=== PATIENT | male | born 1935 | race Caucasian/White ===

== ENCOUNTER → 2016-11-16 | Outpatient (CLI) | payer MEDICARE, BC ==
[~2016-11-16] MED LIST: ASA CHILDREN'S81 MG PO; CYTOTEC DPS200 MCG VG; FLOMAX DPS0.4 MG PO; FOLVITE-DPS1 MG PO; FOSAMAX70 MG PO; LOPRESSOR DPS50 MG PO; METHOTREXATE2.5 MG PO; NORVASC5 MG PO; TYLENOL EXTRA500 M1 PO; VALTREX DPS500 MG PO; VITAMIN D5000 UNIT PO; VITAMIN D50000 UNIT PO; VOLTAREN75 MG PO; ZOCOR DPS20 MG PO
== END | disposition home or self-care (01) ==
LOC: RAD.S 10-12 10:00
DX: I62.00 Nontraumatic subdural hemorrhage, unspecified (principal); Z98.890 Other specified postprocedural states